=== PATIENT | female | born 1960 | race Caucasian/White ===

== ENCOUNTER 2018-10-30 06:26 | Day surgery (SDC) | payer BC, MEDICAID ==
[2018-10-30] MEDS ORDERED: Lidocaine 2% 100 MG/5 ML Syringe IVPUSH ONE (06:27)
[2018-10-30] MEDS ORDERED: Ondansetron 4 MG/2 ML SDV IVPUSH ONE (06:27)
[2018-10-30] MEDS ORDERED: Propofol 200 MG/20 ML SDV IV ONE (06:27)
[2018-10-30] MEDS ORDERED: Midazolam 1 MG/ML 2 ML SDV IV ONE (06:27)
[2018-10-30] MEDS ORDERED: Lactated Ringers 1,000 ML IV SCH (06:45)
--- NOTE | 2018-10-30 08:16 | PCM.PN ---
- General Info Date of Service: 10/30/18 - Review of Systems Systems Review Comment:: 58 y/o female with GERD and family history of Colon CA in mother here for EGD and Colonoscopy. She is medically stable to proceed. There has been no significant changes from the time of her last H and P. I have discussed the proposed procedures with the patient. She agrees to proceed accepting risks. - Patient Data Vitals - Most Recent: Last Vital Signs Temp 98.7 F 10/30/18 07:10 Pulse 92 10/30/18 07:10 Resp 16 10/30/18 07:10 BP 142/91 H 10/30/18 07:10 Pulse Ox 98 10/30/18 07:10 Weight - Most Recent: 268 lb 15.423 oz Med Orders - Current: Current Medications Lactated Ringer's (Ringers, Lactated) 1,000 mls @ 125 mls/hr IV ASDIRECTED [facility] Last Admin: 10/30/18 07:48 Dose: 125 mls/hr - Problem List Review Problem List Initiated/Reviewed/Updated: Yes - My Orders Last 24 Hours: My Active Orders 10/29/18 Dinner Nothing Per Oral Diet [DIET] 10/30/18 06:45 Patient Status [ADT] Routine Blood Glucose Check, Bedside [RC] ONETIME Patient to Empty Bladder [RC] ASDIRECTED Verify Patient Consent Obtain [RC] ASDIRECTED Lactated Ringers [Ringers, Lactated] 1,000 ml IV ASDIRECTED Peripheral IV Insertion Adult [OM.PC] Routine - Assessment Assessment:: GERD Family history of colon cancer - Plan Plan:: EGD and Colonoscopy
--- NOTE | 2018-10-30 09:11 | PCM.OPNOTE ---
- General Post-Op/Procedure Note Date of Surgery/Procedure: 10/30/18 Operative Procedure(s): EGD with Biopsy. Colonoscopy with Polypectomy Findings: Hiatal Hernia Gastric Polyps Rectal Polyp Moderate Sigmoid Diverticulosis Pre Op Diagnosis: GERD. Family History of Colon Cancer Post-Op Diagnosis: Hiatal Hernia. Gastric Polyps. Rectal Polyp. Sigmoid Diverticulosis Anesthesia Technique: [facility] – [place] Primary Surgeon: Reed Lira Pathology: Biopsies of Gastric Antrum and Gastric Polyps Rectal Polyp EBL in mLs: 3 Complications: None Condition: Good
--- NOTE | 2018-10-30 14:38 | OR ---
DATE OF OPERATION: 10/30/2018 SURGEON: Reed Lira MD PREOPERATIVE DIAGNOSES: Gastroesophageal reflux disease and family history of colon cancer. POSTOPERATIVE DIAGNOSES: Hiatal hernia, gastric polyps, sigmoid diverticulosis, and rectal polyp. OPERATIONS PERFORMED: Esophagogastroduodenoscopy with biopsy and colonoscopy with polypectomy. INDICATIONS FOR SURGERY: This 58-year-old female has been having some increasing symptoms of GERD and some difficulty swallowing recently. She also has a known family history of colon cancer in her mother and it has been 5 years since her last colon exam. FINDINGS: On upper endoscopy, the patient has an approximately 3 cm hiatal hernia. The Z-line is distinct and shows only a mild amount of inflammation. The remainder of the esophagus appears normal. The gastric mucosa does contain some small benign-appearing polyps in its upper aspect. These range in size from 3 to 6 mm. They were sessile and do not have any worrisome characteristics grossly. The remainder of the gastric mucosa appears normal as does the duodenal mucosa as visualized. During colonoscopy, there was a moderate degree of sigmoid diverticulosis but without evidence of acute inflammation. The patient also had a 1 cm sessile rectal polyp, which was soft but irregular in shape, located 2 cm from the anal verge. The remainder of the colon appeared normal. PROCEDURE IN DETAIL: The patient was taken to the procedure room. She was given intravenous sedation and her throat was topically anesthetized. The esophagus was then intubated with the Olympus gastroscope, was carefully advanced down through the esophagus, stomach, and into the duodenum where examination to the third portion was performed. The duodenum was carefully examined and the scope was withdrawn back into the stomach, where random biopsies of the antrum were taken to rule out H. pylori. The scope was withdrawn back to the upper portion of the stomach where retroflexed examination of the fundus was performed. Random biopsies of the gastric polyps were taken. The GE junction and esophagus were then re-examined as the scope was withdrawn. Attention was turned to colonoscopy. Digital rectal exam was performed showing no rectal masses. The Olympus colonoscope was inserted into the rectum and the above-described polyp was identified. This was removed with a cautery snare and retrieved into a polyp trap. Retroflexed examination of the rectal canal was also performed. The scope was then carefully advanced under direct visualization through the entire length of the colon until the cecum was reached. Cecal acquisition was confirmed by noting normal internal cecal anatomy including the appendiceal orifice and ileocecal valve. The cecum was carefully examined and then the scope was slowly withdrawn sequentially re- examining the colonic segments until the entire colon and rectum had been fully examined. With no sign of any complication, the scope was removed and the patient was taken from the procedure room in satisfactory condition. ESTIMATED BLOOD LOSS: 3 mL. COMPLICATIONS: None. PROGNOSIS: Good. /[id number] DIAZ/RAHUL
== END 2018-10-30 09:50 | disposition home or self-care (01) ==
LOC: FB.SDS 06:26
PROVIDERS: ATTEND Surgery
DX: Z12.11 Encounter for screening for malignant neoplasm of colon (principal); D12.8 Benign neoplasm of rectum; K57.30 Diverticulosis of large intestine without perforation or abscess without bleeding; K21.9 Gastro-esophageal reflux disease without esophagitis; K29.50 Unspecified chronic gastritis without bleeding; K31.7 Polyp of stomach and duodenum; K44.9 Diaphragmatic hernia without obstruction or gangrene; K31.89 Other diseases of stomach and duodenum; I10 Essential (primary) hypertension; E11.9 Type 2 diabetes mellitus without complications; E78.2 Mixed hyperlipidemia; E66.9 Obesity, unspecified; Z68.41 Body mass index [BMI] 40.0-44.9, adult; M54.30 Sciatica, unspecified side; Z88.1 Allergy status to other antibiotic agents; Z88.0 Allergy status to penicillin; Z88.2 Allergy status to sulfonamides; Z86.010 Personal history of colon polyps; Z80.0 Family history of malignant neoplasm of digestive organs; Z79.1 Long term (current) use of non-steroidal anti-inflammatories (NSAID); Z79.84 Long term (current) use of oral hypoglycemic drugs; Z79.899 Other long term (current) drug therapy
CPT/HCPCS: 43239; 45385; 88305; 88342; J2001; J2250; J2405; J2704; J7120; 00731-QZ

== ENCOUNTER 2021-12-21 06:59 | Day surgery (SDC) | payer MEDICAID ==
[2021-12-21] MEDS ORDERED: Propofol 200 MG/20 ML SDV IV ONE (07:00)
[2021-12-21] MEDS ORDERED: Sodium Chloride 0.9% 10 ML Syringe FLUSH PRN (07:00)
[2021-12-21] MEDS ORDERED: Ondansetron 4 MG/2 ML SDV IVPUSH ONE (07:00)
[2021-12-21] MEDS ORDERED: Lactated Ringers 1,000 ML IV SCH (07:00)
== END 2021-12-21 10:05 | disposition home or self-care (01) ==
LOC: FB.SDS 06:59
PROVIDERS: ATTEND Surgery
DX: Z12.11 Encounter for screening for malignant neoplasm of colon (principal); K63.5 Polyp of colon; I10 Essential (primary) hypertension; E78.2 Mixed hyperlipidemia; K21.9 Gastro-esophageal reflux disease without esophagitis; Z86.010 Personal history of colon polyps; Z79.899 Other long term (current) drug therapy
CPT/HCPCS: 00811-QZ; 88305; J2405; J2704; J7120